=== PATIENT | male | born 1990 | race Caucasian/White ===

== ENCOUNTER 2018-03-25 07:42 | Emergency (ER) | payer MEDICAID, OTHER ==
[~2018-03-25] VITALS: Ht 182.9 cm; Wt 81.8 kg
[~2018-03-25 07:42] MED LIST: CLOT15CR74 TP
[2018-03-25 07:43] VITALS: BP 127/79
[2018-03-25] MEDS ORDERED: DOXY100C43 PO (08:25)
== END 2018-03-25 08:54 | disposition home or self-care (01) ==
LOC: ER 07:43
DX: L03.012 Cellulitis of left finger (principal); L02.221 Furuncle of abdominal wall; Z88.1 Allergy status to other antibiotic agents
CPT/HCPCS: 99283